=== PATIENT | female | born 1955 | race Caucasian/White ===

== ENCOUNTER 2019-03-31 06:25 | Day surgery (SDC) | payer MEDICARE, OTHER ==
[~2019-03-31] VITALS: Ht 175.3 cm; Wt 68.5 kg
[~2019-03-31 06:25] MED LIST: FLONASE ALLERG9.9 ML NAS; MAGNESIUM400 MG PO; MULTIVITAMINS1 EAC7 PO; OMEGA 3 1,0001 EACH PO; PROBIOTIC1 EAC1 PO; TURMERIC500 M2 PO
--- NOTE | 2019-03-31 08:19 | NUR ---
03/31/19 0818 Ligia Cohn 0812 PATIENT ARRIVES TO PACU AWAKE BUT DROWSY. ANSWERS QUESTIONS APPROPRIATELY. DENIES PAIN OR NAUSEA. RESP EVEN AND UNLABORED, NC AT 3 LITERS.
--- NOTE | 2019-03-31 09:11 | OR ---
[facility] [address] [place], [place] [address] Signed DATE OF OPERATION: 03/31/2019 SURGEON: Parmjit Ignacio MD PREOPERATIVE DIAGNOSES: 1. Paternal grandmother, paternal uncle and maternal 1st cousin with colon cancer. 2. Rectal bleeding. 3. Resolved diarrhea. 4. Unremarkable colonoscopy in 2009. POSTOPERATIVE DIAGNOSES: 1. 8 mm polyp at 4 cm (left anterolateral). 2. Minimal internal hemorrhoids. PROCEDURE: Colonoscopy with cold biopsy, snare polypectomy and hot biopsy. ESTIMATED BLOOD LOSS: None. INDICATIONS: Crystal is a 63-year-old female, who has a family history of colon cancer in a paternal grandmother, paternal uncle and maternal 1st cousin. She went through an unremarkable colonoscopy back in 2009. She was asked to follow up every 5 years due to her family history. More recently, she was having diarrhea associated with rectal bleeding. The diarrhea apparently is nearly resolved, if not completely resolved according to Crystal this morning. However, the rectal bleeding seems to have persisted. Consequently, she was asked to see me for a colonoscopy. In the office, I gave her a pamphlet on colonoscopy and we reviewed that together along with the risks including, but not limited to gas, bloating, crampy abdominal pain, bleeding, perforation requiring surgery, and missed diagnosis. We also reviewed the need for IV conscious sedation. She has done well with Versed and fentanyl in the past. She expressed understanding and wished to proceed. PROCEDURE NOTE: Crystal was taken into our endoscopy suite and placed in the left lateral decubitus position. She was given Zofran 4 mg IV for perioperative nausea. She was given a total of 9 mg of Versed and 150 mcg of fentanyl to cover the case. She was pushing back with her abdomen too much on occasion and we found that her blood pressure runs low, which is chronic for her, but her heart rate was in the 40s as well. If she has any recall of Electronically Signed By: PARMJIT IGNACIO MD 03/31/19 0911 PATIENT NAME: CRYSTAL CATALAN OPERATIVE REPORT DATE OF : 51 REPORT #: [id number] PHYSICIAN: PARMJIT IGNACIO MD PCP: MARITZA PEÑALOZA MD REPORT IS CONFIDENTIAL AND NOT TO BE RELEASED WITHOUT AUTHORIZATION [facility] [address] [place], [place] [address] Signed the procedure, she might consider monitored anesthesia care with propofol in the future. A digital rectal exam had been done and this was unremarkable. No external hemorrhoids and good sphincter tone. The adult colonoscope was introduced and advanced all around into the cecum under direct visualization of the camera. It took extra sedation and abdominal compression and careful manipulation of the scope to get through the sigmoid colon and it improved as we came to the left colon and down into the cecum itself. Her prep was good. The scope was slowly withdrawn. We could easily see the appendiceal orifice and the ileocecal valve. We took pictures throughout for photodocumentation. She had no diverticulosis and no AV malformations. The colon was unremarkable. The rectum was unremarkable except when we retroflexed the scope. We found an 8-10 mm polyp just above the anal canal. We took an initial biopsy at the base with hot biopsy forceps. We then divided it with the snare and suctioned it through the scope and captured in her canister. We then took an additional biopsy on the one side of the base with the help of hot biopsy forceps. It is just at the top of the internal anal hemorrhoid columns. Her internal hemorrhoid columns are quite minimal. The gas was then suctioned out and the colonoscope removed. On digital palpation, there is some sensation that this is in the left anterolateral position. After this, Crystal was taken into the recovery room in stable condition. RECOMMENDATIONS: I will see Crystal back in my office in 7 to 14 days to review her results. I suspect this friable polyp is the source of her bleeding. Parmjit Ignacio MD [facility]/DENISEL /[id number] cc: MD Maritza Fields MD Copies: PARMJIT IGNACIO MD Electronically Signed By: PARMJIT IGNACIO MD 03/31/19 0911 PATIENT NAME: CRYSTAL CATALAN UNA OPERATIVE REPORT DATE OF : 51 REPORT #: [id number] PHYSICIAN: PARMJIT IGNACIO MD PCP: MARITZA PEÑALOZA MD REPORT IS CONFIDENTIAL AND NOT TO BE RELEASED WITHOUT AUTHORIZATION [address] [address] Signed MARITZA PEÑALOZA MD ~ Electronically Signed By: PARMJIT IGNACIO MD 03/31/19910 PATIENT NAME: CRYSTAL CATALAN UNA OPERATIVE REPORT DATE OF : 51 REPORT #: [id number] PHYSICIAN: PARMJIT IGNACIO MD PCP: MARITZA PEÑALOZA MD REPORT IS CONFIDENTIAL AND NOT TO BE RELEASED WITHOUT AUTHORIZATION
--- NOTE | 2019-04-01 13:00 | PATH ---
[facility] [address] [place], [place] [address] Signed SPECIMEN(S): A COLON NOS SPECIMEN(S): B RECTAL POLYP AT 4CM SPECIMEN SOURCE: A. COLON NOS B. RECTAL POLYP AT 4CM CLINICAL HISTORY: Diarrhea, family history of colon CA, rectal bleeding. MICROSCOPIC DESCRIPTION: A. Sections reveal biopsies of colonic mucosa. The epithelial surface is intact and has retained mucus secreting ability. The basement membrane is not thickened. The glands are simple and tubular and reach all of the way to the muscularis mucosae. The lamina propria is not expanded and contains a few plasma cells, lymphocytes and infrequent eosinophils. No acute inflammatory cells, excess intraepithelial lymphocytes, crypt abscesses, areas of fibrosis, granulomas or pseudomembranes are seen. There is no evidence of malignancy or atypia. B. Histologic sections of all submitted blocks are examined by light microscopy. These findings, together with the gross examination, support the pathologic diagnosis. LJA:cml FINAL PATHOLOGIC DIAGNOSIS: A. Mucosa, colon, no otherwise specified, biopsy: - No microscopic pathologic diagnosis. B. Mucosa, rectum at 4 cm, biopsy: - Villous adenoma. - Negative for high-grade dysplasia. LJA:cml:C2NR GROSS DESCRIPTION: Two specimens are received in two containers, labeled "RA." A. The specimen, labeled "RA," and designated on the requisition "colon NOS," is received in formalin and consists of three montesinos soft tissue fragment(s) that measure 0.3-0.4 cm in greatest dimension. The specimen is entirely submitted in cassette (A1). B. The specimen, labeled "RA," and designated on the requisition "rectum polyp at 4 cm," is received in formalin and consists of three montesinos soft tissue fragment(s) that measure 0.4-0.7 cm in greatest dimension. The largest tissue fragment is inked and bisected. The specimen is PATIENT NAME: SANYA CATALAN PATHOLOGY DATE OF : 51 REPORT #: [id number] PHYSICIAN: ROGELIO PATHOLOGY PCP: MARITZA PEÑALOZA MD REPORT IS CONFIDENTIAL AND NOT TO BE RELEASED WITHOUT AUTHORIZATION [facility] [address] [place], [place] [address] Signed entirely submitted in cassette (B1). FB (under the direct supervision of a pathologist) The Gross Description was prepared using a voice recognition system. The report was reviewed for accuracy; however, sound-alike word errors, addition and/or deletions may occur. If there is any question about this report, please contact Client Services. PERFORMING LABORATORY: The technical component was performed by [address] [address] (Travel Clerk: Iva Zimmerman MD; CLIA# [id number]). Professional [facility], [address] [address] (Travel Clerk: Frank Ortez MD; CLIA# [id number]). Diagnostician: Frank Ortez MD Pathologist Electronically Signed 04/01/2019 Copies: ~ PATIENT NAME: SANYA CATALAN PATHOLOGY DATE OF : 51 REPORT #: [id number] PHYSICIAN: ROGELIO PATHOLOGY PCP: MARITZA PEÑALOZA MD REPORT IS CONFIDENTIAL AND NOT TO BE RELEASED WITHOUT AUTHORIZATION
== END 2019-03-31 08:50 | disposition home or self-care (01) ==
LOC: DS 06:25 → OPS 06:25 → DS 06:45 → OPS 08:50
PROVIDERS: Colon & Rectal Surgery
PROC: 0DBE8ZX Excision of Large Intestine, Via Natural or Artificial Opening Endoscopic, Diagnostic (ICD-10-PCS; 2019-03-31)
PROC: 0DBP8ZZ Excision of Rectum, Via Natural or Artificial Opening Endoscopic (ICD-10-PCS; principal; 2019-03-31 06:45)
DX: D12.8 Benign neoplasm of rectum (principal); K64.8 Other hemorrhoids; Z80.0 Family history of malignant neoplasm of digestive organs; Z98.890 Other specified postprocedural states; Z79.899 Other long term (current) drug therapy; Z79.51 Long term (current) use of inhaled steroids
CPT/HCPCS: 99153; G0500; J2250; J2405; J3010; J7121

== ENCOUNTER 2025-02-16 11:29 | Day surgery (SDC) | payer MEDICARE, OTHER ==
[~2025-02-16] VITALS: Ht 175.3 cm; Wt 71.8 kg
[~2025-02-16 11:29] MED LIST changes: +CEFAZOLIN SODIUM 2 GM in SODIUM CHLORIDE 0.9% 100 ML IV SCH; +CELECOXIB200 MG PO; +CLARITIN-D 121 EACH PO; +FISH OIL 1,001000 MG PO; +FLONASE ALLERG9.9 ML; -FLONASE ALLERG9.9 ML NAS; +IBLOOD GLUCOSE TEST STRIP 1 EA TEST VI PRN; +LACTATED RINGER'S 1,000 ML IV SCH; +LIDOCAINE HCL 1% 5 ML SDV INJ ONE; +MIDAZOLAM HCL 5 MG/5 ML VIAL IV PRN; -OMEGA 3 1,0001 EACH PO; +PREMARIN30 GM VAGINAL; +VITAMIN D325 MC2 PO; +fentaNYL citrate 100 MCG/2 ML VIAL IV PRN
[2025-02-16 11:49] VITALS: BP 122/73
[2025-02-16] MEDS ORDERED: fentaNYL citrate 100 MCG/2 ML VIAL ONE ×3 (13:59→14:22)
[2025-02-16] MEDS ORDERED: MIDAZOLAM HCL 5 MG/5 ML VIAL ONE (14:00)
--- NOTE | 2025-02-16 15:18 | NUR ---
02/16/25 1518 Sheets,Franci 1504 PT ARRIVED TO PACU AWAKE AND LOOKING AROUND ROOM. PT DENIES CONCERNS AND ENCOURAGED TO PASS GAS NEEDED. 1511 O2 REMOVED AND MD AT BEDSIDE TALKING TO PT. 1517 HOB INCREASED AND PT SIPPING WATER WITH NO CONCERNS. VSS.
[2025-02-16 15:25] VITALS: BP 117/79
--- NOTE | 2025-02-18 19:47 | OR ---
[facility] [address] [place], [place] [address] Signed DATE OF OPERATION: 02/16/2025 SURGEON: Yany Márquez MD PREOPERATIVE DIAGNOSES: 1. Colon screening. 2. Family history of colon cancer (maternal uncle, maternal grandmother and maternal cousin). POSTOPERATIVE DIAGNOSES: 1. Sigmoid diverticulosis. 2. Polyps x3. PROCEDURES: Total colonoscopy to cecum with cold snare polypectomy x2, cold morcellation polypectomy x1. ANESTHESIA: Intravenous sedation, fentanyl 200 mcg and Versed 8 mg. INDICATION: This 69-year-old white woman is a patient of DOMENIC Prado and formerly Dr. Dylon Cohen. She last underwent colonoscopy by Dr. Cohen in 2019. She has family history of colon cancer in a maternal uncle, maternal grandmother, and maternal cousin. She has no symptoms of bleeding, diarrhea, or constipation. She understands risk of bleeding, infection, and perforation related to surveillance colonoscopy and wished to proceed. FINDINGS: The prep was good. Complete colonoscopy was undertaken of the cecum. Passage was somewhat challenging to the sigmoid and left colon for reasons that are not clear, though she does have diverticulosis. There were three small polyps identified, the right mid colon, right proximal transverse colon, and the proximal left colon. All were small, and all were excised with cold morcellation technique or snare polypectomy. DESCRIPTION OF PROCEDURE: The patient was brought to the endoscopy suite, placed in lateral decubitus position, given intravenous sedation to the point of slurred speech and nystagmus. Digital rectal examination was normal. An Olympus video colonoscope was passed in the rectum and manipulated into the sigmoid. Electronically Signed By: YANY MÁRQUEZ MD 02/18/251946 PATIENT NAME: SANYA CATALAN OPERATIVE REPORT DATE OF : 51 REPORT #: [id number] PHYSICIAN: YANY MÁRQUEZ MD PCP: SYH ANDERSON PA-C REPORT IS CONFIDENTIAL AND NOT TO BE RELEASED WITHOUT AUTHORIZATION [facility] [address] [place], [place] [address] Signed Passage to this area was challenging for reasons that are unclear, though she did have numerous diverticula. The scope was exchanged for a different one, which was far easier to manage. The scope was ultimately passed beyond this area to the transverse colon and ultimately to the cecum. The ileocecal valve appeared normal. There was no sign of neoplasm there. The scope was withdrawn. In the mid ascending colon was a small adenomatous-appearing polyp, which was excised with cold morcellation technique. Further withdrawal showed a somewhat larger polyp of the right transverse colon which was excised with cold snare technique. Some of the polyp was not retrieved, but much of it was passed for pathology. Further withdrawal showed another small polyp of the proximal descending colon, excised with cold snare technique as well. Withdrawal of the scope did confirm diverticula once again in the left colon and sigmoid. The rectum was normal. Scope was removed, and the patient was taken to the recovery room in good condition. CONCLUDING DIAGNOSES: 1. Polyps x3, all excised. 2. Diverticulosis. PLAN: Recommend repeat colonoscopy in 7 years, sooner if symptoms should develop. Recommend high-fiber diet as well. The patient will return to the ongoing care of DOMENIC Prado. Yany Márquez MD JM/MODL /[id number] cc: Shy Anderson PA-C Copies: SHY ANDERSON PA-C ~ Electronically Signed By: YANY MRÁQUEZ MD 02/18/25 1947 PATIENT NAME: SANYA CATALAN UNA OPERATIVE REPORT DATE OF : 51 REPORT #: [id number] PHYSICIAN: YANY MÁRQUEZ MD PCP: SHY ANDERSON PA-C REPORT IS CONFIDENTIAL AND NOT TO BE RELEASED WITHOUT AUTHORIZATION
--- NOTE | 2025-02-19 15:37 | PATH ---
[facility] [address] [place], [place] [address] Signed SPECIMEN(S): A MID ASCENDING POLYP SPECIMEN(S): B PROXIMAL TRANSVERSE POLYP SPECIMEN(S): C PROXIMAL DESCENDING POLYP SPECIMEN SOURCE: A. MID ASCENDING POLYP B. PROXIMAL TRANSVERSE POLYP C. PROXIMAL DESCENDING POLYP CLINICAL HISTORY: History of polyps, family history of colon cancer, polyps X3, diverticulosis FINAL PATHOLOGIC DIAGNOSIS: A. Mid ascending polyp - Unremarkable colonic mucosa, additional levels reveal no evidence of hyperplastic, serrated or adenomatous polyp. B. Proximal transverse polyp - Sessile serrated polyp, negative for dysplasia. C. Proximal descending polyp - Unremarkable colonic mucosa, additional levels reveal no evidence of hyperplastic, serrated or adenomatous polyp. AMB MICROSCOPIC EXAMINATION: Histologic sections of all submitted blocks are examined by light microscopy. These findings, together with the gross examination, support the pathologic diagnosis. GROSS DESCRIPTION: A. The specimen, labeled and designated "Kavon, mid ascending polyps," is received in formalin and consists of two montesinos soft tissue fragments, ranging from 0.2-0.3 cm. Entirely submitted in (A1). B. The specimen, labeled and designated "Kavon, proximal transverse polyp," is received in formalin and consists of three montesions soft tissue fragments, ranging from 0.1-0.4 cm. Entirely submitted in (B1). C. The specimen, labeled and designated "Kavon, proximal descending polyp," is received in formalin and consists of one montesinos soft tissue fragment, 0.2 cm. Entirely submitted in (C1). VB (under the direct supervision of a pathologist) The Gross Description was prepared using a voice recognition system. The report PATIENT NAME: SANYA CATALAN PATHOLOGY DATE OF : 51 REPORT #: [id number] PHYSICIAN: ROGELIO RODRIGEZ PCP: MICHAELLE GAGE PA-C REPORT IS CONFIDENTIAL AND NOT TO BE RELEASED WITHOUT AUTHORIZATION [facility] [address] [place], [place] [address] Signed was reviewed for accuracy; however, sound-alike word errors, addition and/or deletions may occur. If there is any question about this report, please contact Client Services. ADDITIONAL NOTES: Immunohistochemical and/or in situ hybridization studies if performed in this case included appropriate positive controls that reacted as expected. This test was developed and its performance characteristics determined by [employer] [facility]. It has not been cleared or approved by the U.S. Food and Drug Administration. The FDA has determined that such clearance or approval is not necessary. This test is used for clinical purposes. It should not be regarded as investigational or for research. [employer] [facility] is certified under the Clinical Laboratory Improvement Amendments of 1988 (CLIA) as qualified to perform high complexity clinical laboratory testing. PERFORMING LABORATORY: Technical component was performed by [facility], [address] [place] [id number] (CLIA# [id number]). Professional interpretation was performed by [facility] [address] [place] [phone] [id number] Diagnostician: Iva Zimmerman MD Pathologist Electronically Signed 02/19/2025 Copies: ~ PATIENT NAME: SANYA CATALAN PATHOLOGY DATE OF : 51 REPORT #: [id number] PHYSICIAN: ROGELIO PATHOLOGY PCP: MICHAELLE GAGE PA-C REPORT IS CONFIDENTIAL AND NOT TO BE RELEASED WITHOUT AUTHORIZATION
== END 2025-02-16 15:32 | disposition home or self-care (01) ==
LOC: OPS 11:29 → DS 11:29 → OPS 12:00 → DS 12:00 → OPS 15:32
PROVIDERS: ATTEND Surgery
PROC: 0DBL8ZX Excision of Transverse Colon, Via Natural or Artificial Opening Endoscopic, Diagnostic (ICD-10-PCS; 2025-02-16)
PROC: 0DBM8ZX Excision of Descending Colon, Via Natural or Artificial Opening Endoscopic, Diagnostic (ICD-10-PCS; 2025-02-16)
PROC: 0DBK8ZX Excision of Ascending Colon, Via Natural or Artificial Opening Endoscopic, Diagnostic (ICD-10-PCS; principal; 2025-02-16 12:00)
DX: Z12.11 Encounter for screening for malignant neoplasm of colon (principal); D12.3 Benign neoplasm of transverse colon; K63.5 Polyp of colon; K57.30 Diverticulosis of large intestine without perforation or abscess without bleeding; Z86.0100 Personal history of colon polyps, unspecified; Z80.0 Family history of malignant neoplasm of digestive organs; Z88.8 Allergy status to other drugs, medicaments and biological substances
CPT/HCPCS: 99153; G0500; J2250; J3010; J7121